=== PATIENT | male | born 1970 | race American Indian/Alaskan Native ===

== ENCOUNTER 2024-11-01 10:37 | Emergency (ER) | payer MEDICARE, MEDICAID, SELFPAY ==
[2024-11-01 10:50] VITALS: BP 153/98; PULSE 85; RESP 18; TEMP 36.6; O2SAT 100; BMI 31.4
--- NOTE | 2024-11-01 10:55 | PD.EDSKIN ---
ED Skin Abcess FB-RME/HPI General Chief complaint: Headache Stated complaint: BUMPS GROWING TO BACK OF HEAD SINCE 2 WEEKS AGO Time Seen by Provider: 11/01/24 10:57 Source: patient Arrival date/time: 11/01/24 10:37 54-year-old male with no known medical history presents to the emergency room with a chief complaint of red scaly patches in the back of his scalp x 2 weeks Mode of arrival: ambulatory Limitations: no limitations Related Data Previous Rx's ?Medication ?Instructions ?Recorded calcipotriene 0.005 % scalp 1 applic topical QDAY 4 weeks #60 11/01/24 solution mL Allergies Allergy/AdvReac Type Severity Reaction Status Date / Time No Known Allergies Allergy Verified 11/01/24 10:40 Review of Systems Review of Systems Systems Reviewed: All systems reviewed, normal except as documented Constitutional Constitutional: Reports system reviewed and no additional complaints, except as documented, Denies fatigue, Denies fever(s), Denies headache(s) and Denies weakness Eyes Eyes: Reports system reviewed and no additional complaints, except as documented, Denies blurry vision and Denies change in vision ENT Ears, Nose, Mouth, and Throat: Reports system reviewed and no additional complaints, except as documented, Denies otalgia, Denies headache(s), Denies nasal congestion, Denies throat swelling and Denies vertigo Cardiovascular Cardiovascular: Reports system reviewed and no additional complaints, except as documented, Denies chest pain, Denies dyspnea and Denies dyspnea on exertion Respiratory Respiratory: Reports system reviewed and no additional complaints, except as documented, Denies chest congestion, Denies cough, Denies dyspnea, Denies dyspnea on exertion and Denies wheezing Gastrointestinal Gastrointestinal: Reports system reviewed and no additional complaints, except as documented, Denies abdominal pain, Denies cramping, Denies nausea and Denies vomiting Genitourinary Genitourinary: Reports system reviewed and no additional complaints, except as documented, Denies dysuria and Denies hematuria Musculoskeletal Musculoskeletal: Reports system reviewed and no additional complaints, except as documented and Denies back pain Integumentary/Breasts Skin/Breast: Reports system reviewed and no additional complaints, except as documented, Reports dry skin, Reports erythema, Reports pruritus, Reports rash, Reports sores and Denies wounds Neurologic Neurologic: Reports system reviewed and no additional complaints, except as documented, Denies confusion, Denies headache(s), Denies lack of coordination, Denies vertigo and Denies weakness Psychiatric Psychiatric: Reports system reviewed and no additional complaints, except as documented, Denies anxiety, Denies confusion, Denies depression, Denies paranoia, Denies suicidal ideation and Denies tactile hallucinations Endocrine Endocrine: Reports system reviewed and no additional complaints, except as documented and Denies fatigue Hematologic/Lymphatic Hematologic/Lymphatic: Reports system reviewed and no additional complaints, except as documented and Denies lymphadenopathy Allergic/Immunologic Allergic/Immunologic: Reports system reviewed and no additional complaints, except as documented, Denies throat swelling, Denies urticaria and Denies wheezing Past Medical History Social History SMOKING STATUS: Never smoker ED Exam General Limitations: Present no limitations General appearance: Present alert and in no apparent distress Head Head exam: Present atraumatic Eye Eye exam: Present normal appearance, PERRL and EOMI ENT ENT exam: Present normal exam, normal oropharynx and mucous membranes moist Neck Neck exam: Present normal inspection, full ROM and trachea midline Chest Chest inspection: Present normal inspection and symmetric chest wall rise Respiratory Respiratory exam: Present normal lung sounds bilaterally Cardiovascular Cardiovascular exam: Present regular rate, normal rhythm and normal heart sounds Abdominal Exam Abdominal exam: Present soft and normal bowel sounds Extremities Exam Extremities exam: Present normal inspection and full ROM Back Exam Back exam: Present normal inspection and full ROM Neurological Exam Neurological exam: Present alert, oriented X3 and CN II-XII intact Psychiatric Psychiatric exam: Present normal affect and normal mood Skin Skin exam: Present warm, dry, intact and normal color Expanded Skin Exam Type of lesion: Present rash Distribution: Present head Description: Present erythematous and crusting Course Quality Measures none Vital Signs Vital signs: Vital Signs Temperature 98 F 11/01/24 10:50 Pulse Rate 85 11/01/24 10:50 Respiratory Rate 18 11/01/24 10:50 Blood Pressure 153/98 H 11/01/24 10:50 Pulse Oximetry (%) 100 11/01/24 10:50 Oxygen Delivery Method Room Air 11/01/24 10:50 Skin / Abscess / Foreign Body MDM Narrative MDM Narrative:: 54-year-old male with no known medical history presents to the emergency room with a chief complaint of red scaly patches in the back of his scalp x 2 weeks Patient is hemodynamically stable and in no apparent distress Physical examination shows red scaly patches in the back of his scalp. There are small and all of them are about 1 to 2 cm in diameter. The patch is erythemic and scaly and the findings are consistent with psoriasis of the scalp. Medication was sent to the patient's pharmacy and the patient was discharged Patient was discharged and educated to follow-up with primary care provider in the next 24 to 48 hours and return to the emergency room for any evidence of worsening signs or symptoms Patient data External records reviewed:: [facility] previous records Clinical information provided by:: patient Social determinants that could affect healthcare access:: none Patient has the following chronic illnesses:: No chronic illness How is presenting disease/condition affected by chronic disease/condition?: no chronic disease Evaluation data The following diagnostics were reviewed and interpreted by me:: lab results and radiology exam(s) Lab and/or radiology exams considered but not ordered:: Labs and radiology exams considered and ordered Interpretation Summary: N/A Medications / Prescriptions Medications or Prescriptions considered but not ordered:: Rx given Medication administrations:: Rx given Consultations Consultation(s) initiated? (list below): No Diagnosis Skin/Abscess Differential Diagnosis: abscess of skin or subcutaneous tissue, cellulitis, eczema, impetigo, contact dermatitis and other (Psoriasis) Most likely diagnosis given after review of the tests above:: Psoriasis of the scalp Admission Indicated Admission indicated?: not indicated Admission Request Was there a request for admission?: No Disposition Plan Disposition Plan: Discharge Discharge Attestation Discharge Attestation: The patient and all family members were given an opportunity to ask questions and understood the discharge instructions. Discharge instructions specifically effects, indications for sooner follow up or return to the emergency department, and the expected course of current diagnosis. Patient condition: Stable Discharge Plan Plan Patient Disposition: HOME (Self Care) Discharge Disposition comment: Stable Prescriptions/Referrals Prescriptions/Med Rec: New calcipotriene 0.005 % solution 1 applic topical QDAY 28 Days Qty: 60 0RF Rx Instructions: rub in gently and completely Problem List Clinical Impression: Psoriasis of scalp Patient/Caregiver Discharge Instructions Education Materials: ED Psoriasis Additional Instructions: Please follow-up with your primary care provider in the next 24 to 48 hours I sent over some medication to help you with your symptoms please pick it up and take it as indicated For any evidence of worsening signs or symptoms return to the emergency room immediately Print Language: Cymraes Stand Alone Forms: Barbara Award Info., Patient Portal Info Letter PA/[employer] SUPERVISOR Supervising Physician PA/[employer] SUPERVISOR Supervising Physician: Dr. Hernandez
== END 2024-11-01 12:29 | disposition home or self-care (01) ==
LOC: SERX 11:17
PROVIDERS: Emergency Provider Family Medicine; PCP Family Medicine
DX: L40.8 Other psoriasis (principal)
CPT/HCPCS: 99281